=== PATIENT | male | born 1990 | race Caucasian/White ===

== ENCOUNTER 2021-05-05 22:21 | Inpatient (IN) | payer MEDICAID, SELFPAY ==
[~2021-05-05] VITALS: Ht 177.8 cm; Wt 83.0 kg
[2021-05-05 22:21] VITALS: BP 144/75
--- NOTE | 2021-05-05 22:22 | NUR ---
maura patient brought for fever and suspicion of sepsis. patient has been having a fever for the last couple of days. when brought in had a mild fever of 100.3 and has tachycardia normally ranges from 80s-90s. patient was sent home and brought back. patient is nonverbal responds to painful stimulus. has a Gtube placed. pmh: TBI, quadriplegia, epilepsy, chronic respiratory failure, trach to vent allergies: vancomycin
--- NOTE | 2021-05-05 22:22 | NUR ---
PT LEO ALS. TAKEN TO BED 7
[2021-05-05 22:56] LABS: HEMATOCRIT 39.2 % (36-52); HEMOGLOBIN 13.1 g/dL (12.0-18.0); MEAN CORPUSCULAR HEMOGLOBIN 29 pg (27-31); MEAN CORPUSCULAR HGB CONC 33 g/dL (33-37); MEAN CORPUSCULAR VOLUME 85.7 fL (80-94); PLATELET COUNT (AUTO) 233 K/uL (140-450); RED BLOOD CELL COUNT(AUTO) 4.58 MIL/uL (4.20-6.10); RED CELL DISTRIBUTION WIDTH 16.3 % (11.6-13.7); WHITE BLOOD COUNT (AUTO) 15.4 K/uL (4.8-10.8)
[2021-05-05 23:08] LABS: EOSINOPHILS % (MANUAL) 2 % (0-4); LYMPHOCYTES % (MANUAL) 29 % (20-46); MONOCYTES % (MANUAL) 16 % (5-12)
[2021-05-05 23:10] LABS: ALBUMIN 2.9 g/dL (3.4-5.0); ANION GAP 14.9 (8-16); CARBON DIOXIDE 25.6 mmol/L (21-32); CREATININE 0.7 mg/dL (0.6-1.3); POTASSIUM 3.5 mmol/L (3.5-5.1); TOTAL BILIRUBIN 0.5 mg/dL (0.0-1.0)
[2021-05-05] MEDS ORDERED: NACL 0.9% 1,000 ML IV ONE (23:40)
[2021-05-06] MEDS ORDERED: ACETAMINOPHEN 650 MG SUPP RC ONE (00:25)
[2021-05-06] MEDS ORDERED: PIPERACILLIN/TAZOBACTAM 3.375 GM in DEXTROSE 5% 50 ML IV ONE (00:25)
[2021-05-06] MEDS ORDERED: NACL 0.9% 1,000 ML IV ONE (00:25)
--- NOTE | 2021-05-06 00:59 | NUR ---
provided pericare for patient. patient tolerated well
[2021-05-06] MEDS ORDERED: PIPERACILLIN/TAZOBACTAM 3.375 GM VIAL IV ONE (01:36)
--- NOTE | 2021-05-06 02:21 | NUR ---
Note sosa in EDM - 05/06/21 at 0656 by AMILCAR biba patient brought for fever and suspicion of sepsis. patient has been having a fever for the last couple of days. when brought in had a mild fever of 100.3 and has tachycardia normally ranges from 80s-90s. patient was sent home and brought back. patient is nonverbal responds to painful stimulus. has a Gtube placed. pmh: TBI, quadriplegia, epilepsy, chronic respiratory failure, trach to vent allergies: vancomycin
--- NOTE | 2021-05-06 02:28 | NUR ---
patient to CT
--- NOTE | 2021-05-06 02:39 | NUR ---
PT RETURN FROM CT
--- NOTE | 2021-05-06 02:43 | NUR ---
APPROX [address] AND BACK TO ED 7 PT TOLERATED WELL VENT PLUGGED INTO RED OUTLET AND ALARMS REMAIN ON AND AUDIBLE
--- NOTE | 2021-05-06 04:40 | NUR ---
Patient appears to be resting comfortably in bed. Vital Signs within normal limits. Respirations even and unlabored. Safety measures are in place, will continue to monitor patient
[2021-05-06] MEDS ORDERED: TRI48 GT (07:09)
[2021-05-06] MEDS ORDERED: BACL10TA4 GT (07:09)
[2021-05-06] MEDS ORDERED: HYDR-5080 PO (07:09)
[2021-05-06] MEDS ORDERED: FAMO-90 GT (07:09)
[2021-05-06] MEDS ORDERED: LACT-103 GT (07:09)
[2021-05-06] MEDS ORDERED: MSCON30 GT (07:09)
[2021-05-06] MEDS ORDERED: ALBU0.0912 INH (07:09)
[2021-05-06] MEDS ORDERED: LEVE750T25 GT (07:09)
[2021-05-06] MEDS ORDERED: ASCO500T95 GT (07:09)
[2021-05-06] MEDS ORDERED: ACET-2619 GT (07:09)
[2021-05-06] MEDS ORDERED: ATOR40TA GT (07:09)
[2021-05-06] MEDS ORDERED: APIX5TAB4 GT (07:09)
[2021-05-06] MEDS ORDERED: ASPI-1822 GT (07:09)
[2021-05-06] MEDS ORDERED: SENN-73 GT (07:09)
[2021-05-06] MEDS ORDERED: VALP-22 GT (07:09)
--- NOTE | 2021-05-06 07:11 | NUR ---
Pt report given to Mansoor BRIGHT. Transfer of care at this time.
--- NOTE | 2021-05-06 07:11 | NUR ---
REPORT RECEIVED FROM DAMIEN RN FOR CONTINUITY OF CARE. PT IS NON VERBAL. A&OX0. TRACH TO VENT. ST ON MONITOR. IV SITE LT FOOT 22G AND RT FOOT 22G, INTACT, PATENT, GOOD BLOOD RETURN. SKIN WARM AND DRY. GTUBE IN PLACE. WILL CONTINUE TO MOTNIOR.
--- NOTE | 2021-05-06 07:58 | NUR ---
RECEIVED ON A [employer] R860 VENTILATOR PLUGGED INTO RED OUTLET TOLERATING WELL WITHOUT ADVERSE REACTIONS NOTED TO A PORTEX DCT #7 SECURED WITH A PORTEX TRACH TIE CUFF PRESSURE CHECKED NOTED AMBU BAG NOTED AT BEDSIDE AWAKE NO DISTRESS NOTED GOOD CHEST RISE AND [id number] THROUGHOUT BILATERAL LUNG CASTILLO AIRWAY PATENT
--- NOTE | 2021-05-06 08:00 | NUR ---
Patient will be admitted to care of DR WILSON. Admited to TELEMETRY. Will go to room 123 B. Belongings list completed. Report to VALENTÍN BRIGHT.
--- NOTE | 2021-05-06 08:06 | NUR ---
PT ARRIVED FROM ED VIA [facility]
[2021-05-06 09:38] LABS: BILIRUBIN,URINE NEGATIVE (NEGATIVE); BLOOD, URINE 3+ (NEGATIVE); COLOR,URINE YELLOW (YELLOW); LEUKOCYTE ESTERASE ,URINE NEGATIVE (NEGATIVE); NITRITE, URINE NEGATIVE (NEGATIVE); UGLUCOSE 1+ (NEGATIVE)
[2021-05-06 09:50] LABS: APPEARANCE,URINE SLIGHTLY HAZY (CLEAR); RBC,URINE 20-50 /HPF (0-5); WBC,URINE 0-5 /HPF (0-5)
--- NOTE | 2021-05-06 10:00 | NUR ---
PT RESTING IN BED. PT 89% O2. NO S/SX OF DISTRESS
[2021-05-06] MEDS ORDERED: LORazepam 2 MG/ML VIAL IM/IVP PRN (10:35)
[2021-05-06] MEDS ORDERED: MAG SULF 2000 MG/WATER PREMIX 50 ML IV PRN (10:35)
[2021-05-06] MEDS ORDERED: ACETAMINOPHEN 325 MG TAB PO PRN (10:35)
[2021-05-06] MEDS ORDERED: POTASSIUM CHLORIDE 10 MEQ TABER PO PRN (10:35)
[2021-05-06] MEDS ORDERED: ONDANSETRON 4 MG/2 ML VIAL IVP PRN (10:35)
[2021-05-06] MEDS ORDERED: DOCUSATE SODIUM 100 MG GELCAP PO PRN (10:35)
[2021-05-06] MEDS ORDERED: ZOLPIDEM 5 MG TAB PO PRN (10:35)
[2021-05-06] MEDS ORDERED: SODIUM PHOS / POTASSIUM PHOS 1 PKT PDR PO PRN (10:35)
[2021-05-06] MEDS ORDERED: MORPHINE SULFATE 2 MG/ML SYR IVP PRN (10:35)
[2021-05-06] MEDS ORDERED: HYDROcodone/APAP 5/325 MG 1 TAB TAB PO PRN (10:35)
--- NOTE | 2021-05-06 10:58 | NUR ---
NO SOB NOTED GOOD CHEST RISE AND AERATION THROUGHOUT BILATERAL LUNG CASTILLO AIRWAY PATENT Addendum: 05/06/21 at 1709 by Jack Rodriguez RT DOCUMENTED ON WRONG PATIENT
--- NOTE | 2021-05-06 11:00 | NUR ---
NO DISTRESS NOTED EQUAL CHEST RISE AIRWAY PATENT
[2021-05-06 11:05] LABS: BASOPHILS % (AUTO) 0.1 % (0.0-2.0); EOSINOPHILS # (AUTO) 0.1 K/uL (0-0.4); EOSINOPHILS % (AUTO) 0.9 % (0.0-4.0); HEMATOCRIT 36.1 % (36-52); HEMOGLOBIN 11.8 g/dL (12.0-18.0); LYMPHOCYTES # (AUTO) 2.5 K/uL (2.0-11.5); LYMPHOCYTES % (AUTO) 24.4 % (20.5-51.1); MEAN CORPUSCULAR HEMOGLOBIN 29 pg (27-31); MEAN CORPUSCULAR HGB CONC 33 g/dL (33-37); MEAN CORPUSCULAR VOLUME 87.3 fL (80-94); MONOCYTES # (AUTO) 1.6 K/uL (0.8-1.0); MONOCYTES % (AUTO) 15.4 % (1.7-9.3); NEUTROPHILS # (AUTO) 6.2 K/uL (1.8-7.7); NEUTROPHILS % (AUTO) 59.2 % (42.2-75.2); PLATELET COUNT (AUTO) 206 K/uL (140-450); RED BLOOD CELL COUNT(AUTO) 4.13 MIL/uL (4.20-6.10); RED CELL DISTRIBUTION WIDTH 16.1 % (11.6-13.7); WHITE BLOOD COUNT (AUTO) 10.4 K/uL (4.8-10.8)
[2021-05-06 11:20] LABS: ALBUMIN 2.6 g/dL (3.4-5.0); ANION GAP 12.7 (8-16); CARBON DIOXIDE 27.3 mmol/L (21-32); CHOL/HDL RATIO 4.2 (1-4.5); CREATININE 0.5 mg/dL (0.6-1.3); TOTAL BILIRUBIN 0.4 mg/dL (0.0-1.0)
[2021-05-06 11:29] LABS: PROTHROMBIN TIME 10.3 secs (10.8-13.4)
[2021-05-06 12:00] VITALS: BP 128/76
--- NOTE | 2021-05-06 12:01 | NUR ---
PT RESTING IN BED, PT CHANGED AND REPOSITIONED. PT HAD BM AND URINE.
[2021-05-06 12:25] LABS: FREE T4 (FREE THYROXINE) 0.86 ng/dL (0.76-1.46); THYROID STIMULATING HORMONE 0.99 uIU/mL (0.34-3.74)
[2021-05-06] MEDS: PIPERACILLIN/TAZOBACTAM 3.375 GM in DEXTROSE 5% 50 ML IV SCH (13:00)
--- NOTE | 2021-05-06 14:07 | NUR ---
NO APPARENT DISTRESS NOTED GOOD AERATION THROUGHOUT BILATERAL LUNG CASTILLO AIRWAY PATENT
--- NOTE | 2021-05-06 14:20 | NUR ---
PT REPOSITIONED AND CHANGED, BED BATH PERFORMED
[2021-05-06] MEDS ORDERED: FOAM DRESSING TP PRN (14:55)
[2021-05-06] MEDS: NACL 0.9% 1,000 ML IV SCH ×2 (15:02→20:35)
[2021-05-06 16:00] VITALS: BP 140/93
[2021-05-06] MEDS ORDERED: FAMOTIDINE 20 MG TAB GT SCH (16:45)
[2021-05-06] MEDS ORDERED: SENNA 8.6 MG TAB GT SCH (16:45)
[2021-05-06] MEDS ORDERED: ASPIRIN 81 MG TAB.CHEW GT SCH (16:45)
[2021-05-06] MEDS ORDERED: HYDROcodone/APAP 7.5/325 MG 1 TAB PO PRN (16:45)
[2021-05-06] MEDS ORDERED: MORPHINE TAB ER 30 MG TABER PO PRN (16:45)
--- NOTE | 2021-05-06 17:50 | NUR ---
TUBE FEEDING BEGAN. PT EDUCATED PT UNABLE TO VERBALIZE UNDERSTANDING.
--- NOTE | 2021-05-06 18:21 | NUR ---
PT EVALUATED TOLERATING TUBE FEEDINGS WELL. NO S/SX OF DISTRESS AT THI TIME
--- NOTE | 2021-05-06 19:30 | NUR ---
RECEIVED ENDORSEMENT FROM DAYSHIFT RN AT BEDSIDE FOR CONTINUITY OF CARE, PT IN STABLE CONDITION.
[2021-05-06 20:00] VITALS: BP 118/76
--- NOTE | 2021-05-06 20:00 | NUR ---
PT IN BED AOX1, HE IS A TRACH TO VENT VENT SETTINGS FI02 AT 30 PEEP AT 5 TV 400. PT ALSO HAS A GT TUBE INTACT AND RUNNING JEVITY 1.2 AT 50MLS/HR (GOAL IS 60) WITH H20 FLUSH AT 85 Q 6HRS. PT HAD 30MLS RESIDUAL WHEN CHECKED. KEPT RATE AT 50MLS/HR. PT HAS 2 IV SITES ON RIGHT AND LEFT FOOT 22G. LEFT FOOT RUNNING NORMAL SALINE AT 70 MLS /HR. PT IS A QUADRIPLEGIC WITH CONTRACTIONS OF HANDS AND FEET. V/S FOLLOWS: T 99.8 P 94 R 24 B/P 118/76 02 95 WITH ALL CURRENT TRACH TO VENT SETTINGS. COOLING MEASURES PROVIDED FOR TEMP INCREASE. ALL SEIZURES AND FALLS PRECAUTIONS IN PLACE.
--- NOTE | 2021-05-06 20:04 | NUR ---
1912 INCREASED FIO2 TO 40%. SATS WERE 87%. POX PROBE WAS CHECKED FOR ACCURATENESS
[2021-05-06] MEDS: BACLOFEN 10 MG TAB GT SCH (21:00)
[2021-05-06] MEDS: ATORVASTATIN 20 MG TAB GT SCH (21:00)
[2021-05-06] MEDS ORDERED: NON-FORMULARY ITEM (Levetiracetam* (Keppra Xr*) 1 TAB) GT/PO SCH (21:00)
[2021-05-06] MEDS: VALPROIC ACID 250 MG/5 ML UDC GT SCH (21:00)
--- NOTE | 2021-05-06 21:45 | NUR ---
PT WAS TURNED, CHANGED AND REPOSITIONED IN BED. JEVITY CONTINUES AT 50MLS/HR NORMAL SALINE CONTINUES TO RUN AT 70MLS/HR. PT CONTINUES WITH CURRENT VENT SETTINGS. ZOSYN HUNG AND RUNNING ORDERED. HOB UP 35% ALL ORDERED PRECAUTIONS IN PLACE.
--- NOTE | 2021-05-06 22:30 | NUR ---
COVID PCR TEST TAKEN BY NARES AND SENT TO LAB. NECK WOUND CULTURE ALSO COLLECTED. NECK WOUND LOOKS SMALL OPEN AND DRAINING WHITE PUS. ALSO RECEIVED ORDER FOR STRAIGHT CATHETER TO COLLECT URINE FOR URINE CULTURE. ALL ORDERED PRECAUTIONS IN PLACE.
[2021-05-07] VITALS (7 sets, daily range): BP systolic 96–131; BP diastolic 34–80
--- NOTE | 2021-05-07 | NUR ---
PT REPOSITIONED IN BED, HE IS AOX1 JEVITY CONTINUES AT 50MLS/HR AND NORMAL SALINE AT 70 MLS/HR. ALL ORDERED PRECAUTIONS IN PLACE. V/S FOLLOWS: T 98.5 P 102 R 22 B/P 107/63 02 99% WITH ALL CURRENT VENT SETTINGS.
--- NOTE | 2021-05-07 01:47 | NUR ---
0120 SPUTUM UPTAINED AND SENT TO LAB
--- NOTE | 2021-05-07 02:30 | NUR ---
CALLED PHARMACY REGARDING UNVERIFIED MEDICATION THAT WAS DUE AT 2099. PHARMACY VERIFIED, AND SAID THAT THE MEDICATION TIME WOULD DEFAULT TO TOMORROW 05/07/21 DUE TO THAT FACT THAT IT IS ALREADY 05/07. HOWEVER IT WAS PLACED ON THE MAR NOT GIVEN AT 2099, HOWEVER MEDIATION WAS NOT VERIFIED UNTIL PHARMACY WAS CALLED AFTER 2 PM.
[2021-05-07] MEDS: PIPERACILLIN/TAZOBACTAM 3.375 GM in DEXTROSE 5% 50 ML IV SCH ×4 (03:17→21:00)
--- NOTE | 2021-05-07 04:00 | NUR ---
PT IN BED HE WAS TURNED, CHANGED AND REPOSITIONED IN BED V/S FOLLOWS: T 98.4 P 94 R 20 B/P 96/67 02 98% ON ALL TRACH TO VENT SETTINGS.
[2021-05-07] MEDS: NACL 0.9% 1,000 ML IV SCH ×2 (05:56→15:20)
--- NOTE | 2021-05-07 06:00 | NUR ---
ATTEMPTED A STRAIGHT CATH UNSUCCESSFUL, WILL ENDORSE TO AM SHIFT, PT REPOSITIONED IN BED. IV ZOSYN HUNG AND RUNNING ORDERED. NO SEIZURES THIS SHIFT, ALL ORDERED PRECAUTIONS IN PLACE.
[2021-05-07 06:51] LABS: BASOPHILS % (AUTO) 0.1 % (0.0-2.0); EOSINOPHILS # (AUTO) 0.2 K/uL (0-0.4); EOSINOPHILS % (AUTO) 2.6 % (0.0-4.0); HEMATOCRIT 34.6 % (36-52); HEMOGLOBIN 11.3 g/dL (12.0-18.0); LYMPHOCYTES # (AUTO) 2.4 K/uL (2.0-11.5); LYMPHOCYTES % (AUTO) 29.6 % (20.5-51.1); MEAN CORPUSCULAR HEMOGLOBIN 29 pg (27-31); MEAN CORPUSCULAR HGB CONC 33 g/dL (33-37); MEAN CORPUSCULAR VOLUME 87.1 fL (80-94); MONOCYTES % (AUTO) 12.5 % (1.7-9.3); NEUTROPHILS # (AUTO) 4.5 K/uL (1.8-7.7); NEUTROPHILS % (AUTO) 55.2 % (42.2-75.2); PLATELET COUNT (AUTO) 202 K/uL (140-450); RED BLOOD CELL COUNT(AUTO) 3.97 MIL/uL (4.20-6.10); RED CELL DISTRIBUTION WIDTH 15.5 % (11.6-13.7); WHITE BLOOD COUNT (AUTO) 8.2 K/uL (4.8-10.8)
--- NOTE | 2021-05-07 07:25 | NUR ---
PT RECEIVED FROM CRITICAL CARE REGISTERED NURSE RN
--- NOTE | 2021-05-07 07:30 | NUR ---
PT RESTING IN BED. NO S/SX OF DISTRESS AT THIS TIME
[2021-05-07 07:46] LABS: ALBUMIN 2.6 g/dL (3.4-5.0); ANION GAP 9.4 (8-16); CARBON DIOXIDE 27.2 mmol/L (21-32); CREATININE 0.5 mg/dL (0.6-1.3); POTASSIUM 3.6 mmol/L (3.5-5.1); TOTAL BILIRUBIN 0.3 mg/dL (0.0-1.0)
--- NOTE | 2021-05-07 07:56 | NUR ---
RECEIVED ON A [employer] R860 VENTILATOR PLUGGED INTO RED OUTLET TOLERATING WELL WITHOUT ADVERSE REACTIONS NOTED TO A PORTEX DCT #7 AIRWAY SECURED WITH A EDIN TRACH TIE CUFF PRESSURE CHECKED NOTED AMBU BAG NOTED AT BEDSIDE LOC STABLE GPPD CHEST RISE DEEP TRACHEAL SUCTION FOR SMALL THIN YELLOW SECRETIONS AIRWAY PATENT Addendum: 05/07/21 at 1042 by Jack Rodriguez RT GPPD = GOOD
[2021-05-07] MEDS: VALPROIC ACID 250 MG/5 ML UDC GT SCH ×2 (08:54→21:00)
[2021-05-07] MEDS: BACLOFEN 10 MG TAB GT SCH ×2 (08:55→21:00)
[2021-05-07] MEDS: ASCORBIC ACID 500 MG TAB GT SCH (08:55)
[2021-05-07] MEDS: FENOFIBRATE 48 MG TAB GT SCH (08:55)
[2021-05-07] MEDS ORDERED: CRUSHER, PILL MC ONE (08:58)
--- NOTE | 2021-05-07 08:59 | NUR ---
PATIENT HAS BEEN SCREENED AND CATEGORIZED HIGH NUTRITION RISK. PATIENT WILL BE SEEN WITHIN 1-2 DAYS OF ADMISSION. 05/07/[address]
[2021-05-07] MEDS ORDERED: NON-FORMULARY ITEM (Lactulose 30 ML) PO SCH (09:00)
--- NOTE | 2021-05-07 09:00 | NUR ---
MEDICATIONS GIVEN PER MD ORDER. PT EDUCATED PT IS UNABLE TO VERBALIZE UNDERSTANDING NO S/SX OF DISTRESS .
[2021-05-07] MEDS ORDERED: LACTULOSE 20 GM/30 ML UDC PO SCH (09:35)
[2021-05-07] MEDS ORDERED: APIXABAN 2.5 MG TAB PO SCH (09:35)
[2021-05-07] MEDS ORDERED: levETIRAcetam 100 MG/ML ORASYR GT SCH (09:40)
[2021-05-07] MEDS: NACL 0.9% IRR 250 ML BOTTLE IR SCH (13:39)
--- NOTE | 2021-05-07 13:43 | NUR ---
PT CHANGED REPOSITIONED. NO S/SX OF DISTRESS AT THIS TIME .
--- NOTE | 2021-05-07 14:37 | NUR ---
STABLE EQUAL CHEST RISE AIRWAY PATENT SATURATION 99% ON FIO2 OF 40% PEEP 5cmH2O TITRATED FIO2 TO 35% VALENTÍN/RN NOTIFIED
--- NOTE | 2021-05-07 14:47 | NUR ---
05/07/21 RD INITIAL ASSESSMENT COMPLETED PLEASE REFER TO NUTRITION ASSESSMENT UNDER CARE ACTIVITY FOR ESTIMATED NUTRITIONAL NEEDS. 1. CONTINUE JEVITY 1.2 @ 60 ML/HR WITH FREE WATER FLUSH OF 85 ML Q6H -THIS PROVIDE 1440 ML OF VOLUME, 1728 KCAL AND 80 GM OF PROTEIN, MEETING ADEQUATE NUTRIENT NEEDS 2. RECOMMENDED [place]ISON BID 3. RD TO FOLLOW-UP 2-3 DAYS, HIGH RISK PAYAM SANCHES RD
--- NOTE | 2021-05-07 15:20 | NUR ---
PT RESTING IN BED, GTUBE FEEDINGS CHANGED, WOUND CARE PERFORMED PT TOLERATED WELL
--- NOTE | 2021-05-07 16:58 | NUR ---
STABLE NO DISTRESS NOTED GOOD CHEST RISE AIRWAY PATENT
--- NOTE | 2021-05-07 17:52 | NUR ---
PT CHANGED AND REPOSITIONED. NO S/SX OF DISTRESS AT THIS TIME
--- NOTE | 2021-05-07 18:56 | NUR ---
PT RESTING IN BED 02% 99
--- NOTE | 2021-05-07 19:49 | NUR ---
PT ENDORSED TO RN FOR CONTINUITY OF CARE. PT IN STABLE CONDITION
[2021-05-07] MEDS ORDERED: APIXABAN 2.5 MG PO SCH (21:00)
[2021-05-07] MEDS: ATORVASTATIN 20 MG TAB GT SCH (21:00)
[2021-05-07] MEDS: levETIRAcetam 100 MG/ML ORASYR GT SCH (21:00)
[2021-05-07] MEDS: APIXABAN 2.5 MG TAB PO SCH (21:00)
[2021-05-08] VITALS (7 sets, daily range): BP systolic 90–163; BP diastolic 38–77
--- NOTE | 2021-05-08 03:35 | NUR ---
PATIENT IS MENTALLY CHALLENGE IS IN ISOLATION TO R/O COVID LUNG DIMINISH SAT 100%.TEMP 98.8 ABDOMEN ACTIVE BOWEL SOUND 1999 NO RESIDUAL HAS JEVITY 1.2 50 HOUR GOAL 60 HOUR. HAS IVF INFUSING AT 70 HOUR. FLUSH G.T. WITH 85CC H20. PATIENT GIVEN MOUTH CARE. PATIENT HAS 22 GA IN RIGHT AN LEFT FOOT INFUSING WELL IN LEFT FOOT. PATIENT HAS TRACH TO VENT PRVC/AC 10, TV 400, FI02 35% PEEP 5. SAT 100%. NO ACUTE RESP. DISTRESS NOTED.
[2021-05-08] MEDS: PIPERACILLIN/TAZOBACTAM 3.375 GM in DEXTROSE 5% 50 ML IV SCH ×3 (05:06→21:45)
[2021-05-08 06:42] LABS: BASOPHILS % (AUTO) 0.4 % (0.0-2.0); EOSINOPHILS # (AUTO) 0.3 K/uL (0-0.4); EOSINOPHILS % (AUTO) 3.6 % (0.0-4.0); HEMATOCRIT 34.4 % (36-52); HEMOGLOBIN 11.5 g/dL (12.0-18.0); LYMPHOCYTES % (AUTO) 34.4 % (20.5-51.1); MEAN CORPUSCULAR HEMOGLOBIN 29 pg (27-31); MEAN CORPUSCULAR HGB CONC 33 g/dL (33-37); MEAN CORPUSCULAR VOLUME 86.8 fL (80-94); MONOCYTES # (AUTO) 0.8 K/uL (0.8-1.0); MONOCYTES % (AUTO) 8.7 % (1.7-9.3); NEUTROPHILS # (AUTO) 4.7 K/uL (1.8-7.7); NEUTROPHILS % (AUTO) 52.9 % (42.2-75.2); PLATELET COUNT (AUTO) 232 K/uL (140-450); RED BLOOD CELL COUNT(AUTO) 3.96 MIL/uL (4.20-6.10); RED CELL DISTRIBUTION WIDTH 15.7 % (11.6-13.7); WHITE BLOOD COUNT (AUTO) 8.9 K/uL (4.8-10.8)
[2021-05-08 07:17] LABS: ALBUMIN 2.7 g/dL (3.4-5.0); CARBON DIOXIDE 28.1 mmol/L (21-32); CREATININE 0.6 mg/dL (0.6-1.3); PHOSPHORUS 4.3 mg/dL (2.5-4.9); POTASSIUM 4.1 mmol/L (3.5-5.1); TOTAL BILIRUBIN 0.3 mg/dL (0.0-1.0)
--- NOTE | 2021-05-08 07:50 | NUR ---
RECEIVED REPORT FROM NIGHT NURSE PATIENT IS ON TUBE FEEDING WITH GLUCERNA 1.2 AT 50 MLS/HR WATER FLUSH 85 Q6H GOAL IS 60 MLS/HR AND TRACH TO VENT PRVC/AC FIO2 35 TV 400 PEEP ,5 RATE 10 IV ON LEFT FOOT G 22 WITH NS AT 70 NO GIBBONS. SAFETY MEASURES IN PLACE AND CALL LIGHT WITHIN REACH. WILL CONTINUE TO MONITOR.
--- NOTE | 2021-05-08 07:58 | NUR ---
RCV'D PT ON MECHANICAL VENTILATOR WITH CHARTED SETTINGS. PT IS TRACHED. TRACH IS IN PLACE AND SECURED WITH TRACH TIE. VENT IS CONNECTED TO RED OUTLET. ALARMS AUDIBLE. AMBU BAG AT BEDSIDE. SXN'D PATIENT. NO SOB OR DISTRESS NOTED. WILL CONTINUE TO MONITOR PATIENT.
[2021-05-08] MEDS: levETIRAcetam 100 MG/ML ORASYR GT SCH ×2 (09:16→21:52)
[2021-05-08] MEDS: FENOFIBRATE 48 MG TAB GT SCH (09:17)
[2021-05-08] MEDS: ASCORBIC ACID 500 MG TAB GT SCH (09:17)
[2021-05-08] MEDS: LACTULOSE 20 GM/30 ML UDC PO SCH (09:17)
[2021-05-08] MEDS: NACL 0.9% 1,000 ML IV SCH ×3 (09:30→21:48)
[2021-05-08] MEDS: NACL 0.9% IRR 250 ML BOTTLE IR SCH (12:40)
--- NOTE | 2021-05-08 12:42 | NUR ---
ADMINISTERED ZOSYN 3.375 MG INFUSING WELL AND PT SEEN BY DR NGUYEN FOR LEFT POST SCALP LESION. PT IS RESTING.
--- NOTE | 2021-05-08 14:00 | NUR ---
PT IS RESTING AND CHANGED PATIENT
[2021-05-08] MEDS: MUPIROCIN CA NASAL 2% 1GM TUBE NS SCH (15:18)
[2021-05-08] MEDS: CHLORHEXADINE GLUC 2% CLOTH TP SCH (15:18)
--- NOTE | 2021-05-08 16:00 | NUR ---
MADE ROUNDS AT THIS TIME PT IS SLEEPING AND NO DISTRESS NOTED.
--- NOTE | 2021-05-08 17:00 | NUR ---
PATIENT IS NEGATIVE FOR COVID 19 PCR.
--- NOTE | 2021-05-08 19:41 | NUR ---
ENDORSED TO NIGHT NURSE FOR CONTINUITY OF CARE. PT IS STABLE.
--- NOTE | 2021-05-08 19:54 | NUR ---
RECEIVED BEDSIDE ENDORSEMENT FROM AM SHIFT RN, HAS A LEFT FOOT 22G, SKIN INTACT, TRACH TRACH TO VENT - AC/ PRVC, TV: 400, FIO2 35%, PEEP 5, TUBE FEEDING - JEVITY 1.2, CONTACT PRECAUTIONS - MRSA, SAFETY MEASURES IN PLACE, WILL CONTINUE TO MONITOR
[2021-05-08] MEDS: LINEZOLID 600 MG TAB GT SCH (21:00)
[2021-05-08] MEDS: BACLOFEN 10 MG TAB GT SCH (21:45)
[2021-05-08] MEDS: APIXABAN 2.5 MG TAB PO SCH (21:46)
[2021-05-08] MEDS: ATORVASTATIN 20 MG TAB GT SCH (21:47)
[2021-05-08] MEDS: VALPROIC ACID 250 MG/5 ML UDC GT SCH (21:49)
--- NOTE | 2021-05-08 21:55 | NUR ---
ADMINISTERED PTS MEDS, PT WAS SOILED - BOWEL MOVEMENT WAS RUNNY, +MRSA, SKIN INTACT, G-TUBE IS PATENT, FREE OF CLOGS, WILL CONTINUE TO MONITOR.
[2021-05-09] VITALS: BP 105/65
--- NOTE | 2021-05-09 | NUR ---
PATIENT IS KEPT COMFORTABLE IN BED, OBSERVATION OF CHEST RISE AND FALL, VITAL SIGNS TAKEN BP 105/65, O2 SAT 96%, HR 97, TEMP 99.1, PT STABLE, SAFETY MEASURES IN PLACE, WILL CONTINUE TO MONITOR.
[2021-05-09 04:00] VITALS: BP 103/69
[2021-05-09] MEDS: PIPERACILLIN/TAZOBACTAM 3.375 GM in DEXTROSE 5% 50 ML IV SCH ×2 (04:23→12:34)
[2021-05-09 06:35] LABS: BASOPHILS % (AUTO) 0.3 % (0.0-2.0); EOSINOPHILS # (AUTO) 0.4 K/uL (0-0.4); EOSINOPHILS % (AUTO) 4.4 % (0.0-4.0); HEMATOCRIT 34.5 % (36-52); HEMOGLOBIN 11.4 g/dL (12.0-18.0); LYMPHOCYTES # (AUTO) 2.9 K/uL (2.0-11.5); LYMPHOCYTES % (AUTO) 32.5 % (20.5-51.1); MEAN CORPUSCULAR HEMOGLOBIN 29 pg (27-31); MEAN CORPUSCULAR HGB CONC 33 g/dL (33-37); MEAN CORPUSCULAR VOLUME 87.5 fL (80-94); MONOCYTES # (AUTO) 0.9 K/uL (0.8-1.0); MONOCYTES % (AUTO) 10.3 % (1.7-9.3); NEUTROPHILS # (AUTO) 4.7 K/uL (1.8-7.7); NEUTROPHILS % (AUTO) 52.5 % (42.2-75.2); PLATELET COUNT (AUTO) 300 K/uL (140-450); RED BLOOD CELL COUNT(AUTO) 3.94 MIL/uL (4.20-6.10); RED CELL DISTRIBUTION WIDTH 15.9 % (11.6-13.7)
[2021-05-09 07:08] LABS: ALBUMIN 2.7 g/dL (3.4-5.0); ANION GAP 11.7 (8-16); CARBON DIOXIDE 26.1 mmol/L (21-32); CREATININE 0.6 mg/dL (0.6-1.3); PHOSPHORUS 4.1 mg/dL (2.5-4.9); POTASSIUM 3.8 mmol/L (3.5-5.1); TOTAL BILIRUBIN 0.2 mg/dL (0.0-1.0)
--- NOTE | 2021-05-09 07:43 | NUR ---
GAVE ENDORSEMENT TO AM SHIFT RN. PATIENT IN BED, KEPT COMFORTABLE, PT IS STABLE, SCHEDULED MEDS GIVEN, ALL INTERVENTIONS INITIATED
--- NOTE | 2021-05-09 07:46 | NUR ---
RECEIVED REPORT FROM NIGHT NURSE PATIENT IS TRACH TO VENT FIO2 24 TV 400 PEEP 5 RATE 10, WITH GTUBE JEVITY 60 WATER FLUSH 85 Q6H, INCONTINENT, RIGHT FOOT AND LEFT FOOT IV INTACT WITH NS AT 100 MLS/HR. SAFETY MEASURES IN PLACE AND CALL LIGHT WITHIN REACH. WILL CONTINUE TO MONITOR.
--- NOTE | 2021-05-09 07:55 | NUR ---
RCV'D PT ON MECHANICAL VENTILATOR WITH CHARTED SETTINGS. PT IS TRACHED WITH PORTEX 7. TRACH IS IN PLACE AND SECURED WITH TRACH TIE. VENT IS CONNECTED TO RED OUTLET. ALARMS AUDIBLE. AMBU BAG AT BEDSIDE. SXN'D PATIENT. NO SOB OR DISTRESS NOTED. WILL CONTINUE TO MONITOR PATIENT.
[2021-05-09 08:00] VITALS: BP 108/48
[2021-05-09] MEDS: NACL 0.9% 1,000 ML IV SCH (09:14)
[2021-05-09] MEDS: levETIRAcetam 100 MG/ML ORASYR GT SCH (09:17)
[2021-05-09] MEDS: VALPROIC ACID 250 MG/5 ML UDC GT SCH (09:18)
[2021-05-09] MEDS: BACLOFEN 10 MG TAB GT SCH (09:18)
[2021-05-09] MEDS: FENOFIBRATE 48 MG TAB GT SCH (09:18)
[2021-05-09] MEDS: LACTULOSE 20 GM/30 ML UDC PO SCH (09:18)
[2021-05-09] MEDS: LINEZOLID 600 MG TAB GT SCH (09:19)
[2021-05-09] MEDS: ASCORBIC ACID 500 MG TAB GT SCH (09:19)
[2021-05-09] MEDS: APIXABAN 2.5 MG TAB PO SCH (09:20)
--- NOTE | 2021-05-09 09:30 | NUR ---
WOUND CARE EVALUATION NOTE: REASON FOR EVALUATION: LOW CISCO SCALE AND NECK WOUND SKIN ASSESSMENT DONE WITH THIS 31 Y/O PT ADMITTED FROM FACILITY TO [facility] WITH INITIAL DX R/O SEPSIS. PMHX OF TBI, QUADRIPLEGIA, EPILEPSY, CHRONIC RESPIRATORY FAILURE AND TACH TO VENT AND GT. ABOVE INFORMATION OBTAINED FROM ADMISSION H&P. PT IS AWAKE. SKIN IS WARM AND DRY, FRONTAL SCALP SUNK, BLE HAIR GROWTH, NO EDEMA. CONTRACTURES TO NECK, UPPER AND LOWER EXTREMITIES, BILATERAL DORSAL PEDAL PULSES PRESENT AND NORMAL WITH IV HEPLOCK NO S/S OF INFILTRATIONS. CAPILLARY REFILLED < 2 SEC. X 10 TOES. INCONTINENT OF BLADDER X1 DURING ASSESSMENT.PLAN OF CARE DISCUSSED WITH PRIMARY RN. INTEGUMENTARY: -ORAL MEMBRANE PINK INTACT, LIPS, CHEEKS SKIN DRY, NO OPEN WOUNDS -TRACH SITE FELIPE STOMA SKIN DRY AND CLEAN. SKIN INTACT. - GT SITE FELIPE STOMA WITH SKIN INTACT. -INCONTINENT ASSOCIATE DERMATITIS (IAD) TO: B/L GROINS EXTENDED TO SCROTAL, SKIN RED INTACT -TAXATION ACCOUNTANT RELATED PRESSURE INJURY STAGE 3 TO LEFT NECK, 3X3X0.3CM, WOUND BED 100% GRANULATING TISSUE, MOIST, NO ODOR, FELIPE-WOUND SKIN MOIST RECOMMENDATIONS: -APPLY HYDRAGUARD TO R/L GROINS EXTENDED TO PERINEUM BID AND PRN IF SOILING, GRAVE CLEANER -CLEANSE LEFT NECK WITH WOUND CLEANSING SOLUTION AND APPLY HYDRAGEL COVER WITH DRY DRESSING QD AND PRN IF SOILING -APPLY FORM DRESSING TO SACRAL COCCYX Q7 DAYS AND PRN IF SOILING PREVENTION -APPLY HEEL PROTECTORS TO BOTH HEELS AT ALL TIMES -OFFLOAD BILATERAL HEELS BY PLACING PILLOWS UNDER CALVES UNLESS OTHERWISE CONTRAINDICATED -PRESSURE REDISTRIBUTION SURFACE THERAPY -TURN AND REPOSITION Q2H, OFFLOAD SACRALCOCCYX AND BUTTOCKS BY TURNING RIGHT AND LEFT -CONTINUE TO FOLLOW RD RECOMMENDATIONS ALL ABOVE RECOMMENDATIONS DISCUSSED WITH PRIMARY RN. PLEASE CONTACT WOUND CARE NURSE FOR ANY QUESTION AND CHANGE OF WOUND CONDITION.
--- NOTE | 2021-05-09 09:35 | NUR ---
ADMINISTERED SCHEDULED MEDICATION 10 ML RESIDUAL VOLUME AND PT TOLERATED WELL. PT SEEN BY WOUND CARE NURSE AND PLACED DRESSING ON THE LEFT SCALP LESION. WILL CONTINUE TO MONITOR.
[2021-05-09 12:00] VITALS: BP 104/63
[2021-05-09] MEDS ORDERED: SKINTEGRITY HYDROGEL TP SCH (12:15)
[2021-05-09] MEDS ORDERED: LINE600T4 PO (12:29)
[2021-05-09] MEDS ORDERED: SULF-58 PO (12:29)
[2021-05-09] MEDS: NACL 0.9% IRR 250 ML BOTTLE IR SCH (12:34)
--- NOTE | 2021-05-09 12:40 | NUR ---
ADMINISTERED SCHEDULED MEDICATION ZOZYN 3.375 GRAMS INFUSING WELL PT SLEEPING NO DISTRESS NOTED.
[2021-05-09] MEDS ORDERED: HYDRAGUARD CREAM TP SCH (13:00)
--- NOTE | 2021-05-09 13:58 | NUR ---
DC PLANNING: PT IS GOING BACK TO [facility] GOING TO ROOM 127C ARRANGE TRANSPORT WITH [facility] TIME 1500 NOTIFIED JOSE BRIGHT CM TO FOLLOW
[2021-05-09] MEDS: MUPIROCIN CA NASAL 2% 1GM TUBE NS SCH (14:43)
[2021-05-09] MEDS: CHLORHEXADINE GLUC 2% CLOTH TP SCH (14:44)
--- NOTE | 2021-05-09 14:46 | NUR ---
ADMINISTERED MUPIROCIN ON BILATERAL NARES PT TOLERATED WELL.
--- NOTE | 2021-05-09 14:50 | NUR ---
05/09/21 RD FOLLOW UP COMPLETED PLEASE REFER TO NUTRITION ASSESSMENT UNDER CARE ACTIVITY FOR ESTIMATED NUTRITIONAL NEEDS. 1.CONTINUE JEVITY 1.2 @ 60 ML/HR WITH FLUSH OF 85 ML Q6H a.THIS PROVIDE 1440 ML OF VOLUME, 1728 KCAL AND 80 GM OF PROTEIN, MEETING ADEQUATE NUTRIENT NEEDS 2.RECOMMENDED [facility] BID 3.RD TO FOLLOW-UP 2-3 DAYS, HIGH RISK PAYAM SANCHES RD
--- NOTE | 2021-05-09 16:30 | NUR ---
CALLED ZAINAB ZHANG AND GAVE REPORT TO
--- NOTE | 2021-05-09 17:00 | NUR ---
DISCHARGED INSTRUCTIONS REPORTED TO [facility], AND TO [facility] TRANSPORT, REMOVED ID BANDS AND IV INTACT AND NO BLEEDING. CHANGED PT GOWN AND REMOVED TUBE FEEDING CLAMP GTUBE. PT TOOK ALL HIS BELONGINGS AND PATIENT ESCORTED BY [facility] VIA GURNEY. PT IS TRANSFERRED TO [facility] PT IS STABLE.
[2021-05-10] MEDS ORDERED: SKINTEGRITY HYDROGEL TP SCH (09:00)
== END 2021-05-09 17:00 | DRG 720 ==
LOC: MED 22:21 → MTU 05-06 02:17 → MMU 05-06 06:20 → MTU 05-06 08:33
PROVIDERS: ADMIT Family Medicine; ATTEND Family Medicine
PROC: 5A1945Z Respiratory Ventilation, 24-96 Consecutive Hours (ICD-10-PCS; principal; 2021-05-06)
DX: A41.9 Sepsis, unspecified organism (principal); J96.21 Acute and chronic respiratory failure with hypoxia; J69.0 Pneumonitis due to inhalation of food and vomit; G82.50 Quadriplegia, unspecified; E43 Unspecified severe protein-calorie malnutrition; Z99.11 Dependence on respirator [ventilator] status; K76.0 Fatty (change of) liver, not elsewhere classified; G40.909 Epilepsy, unspecified, not intractable, without status epilepticus; N28.89 Other specified disorders of kidney and ureter; I88.0 Nonspecific mesenteric lymphadenitis; R73.9 Hyperglycemia, unspecified; R31.29 Other microscopic hematuria; B95.62 Methicillin resistant Staphylococcus aureus infection as the cause of diseases classified elsewhere; L02.11 Cutaneous abscess of neck; Z20.822 Contact with and (suspected) exposure to COVID-19; L89.899 Pressure ulcer of other site, unspecified stage; N20.0 Calculus of kidney; Z87.820 Personal history of traumatic brain injury; Z88.1 Allergy status to other antibiotic agents; Z87.442 Personal history of urinary calculi; Z93.1 Gastrostomy status; Z98.2 Presence of cerebrospinal fluid drainage device; Z79.899 Other long term (current) drug therapy; Z68.26 Body mass index [BMI] 26.0-26.9, adult
CPT/HCPCS: 36415; 71045; 80053; 80173; 81001; 82150; 83036; 83605; 83690; 83735; 83880; 84100; 84439; 84443; 84484; 85025; 85610; 85730; 87040; 87070; 87081; 87186; 87205; 93005; 94002; 94003; 96361; 96365; 99291; A6248; J2543; J7060; Q0092; U0003